=== PATIENT | male | born 1955 | race Caucasian/White ===

== ENCOUNTER 2020-03-02 06:10 | Emergency (ER) | payer SELFPAY ==
[~2020-03-02] VITALS: Ht 167.6 cm; Wt 80.0 kg
[2020-03-02] MEDS ORDERED: CEFTRIAXONE PMX 1GM/50ML 50 ML IV ONE (06:30)
--- NOTE | 2020-03-02 06:34 | NUR ---
Transferred from [place] for cystitis because they had no inpatient beds. [place] [id number], UA showed moderate RBCs but VSS. The patient able to urinate 300 mLs of clear yellow urine. He only complains of dysuria and frequency.
[2020-03-02] MEDS ORDERED: PLEASE ENTER ALLERGIES MC SCH (07:00)
[2020-03-02] MEDS ORDERED: CEFTRIAXONE PMX 1GM/50ML 50 ML ONE (07:09)
[2020-03-02 07:14] VITALS: BP 140/76
== END 2020-03-02 08:38 | disposition home or self-care (01) ==
LOC: ED 08:10
DX: N30.01 Acute cystitis with hematuria (principal)
CPT/HCPCS: 96365; 99284; J0696